=== PATIENT | female | born 1975 | race American Indian/Alaskan Native ===

== ENCOUNTER 2019-05-18 00:45 | Emergency (ER) | payer OTHER ==
[2019-05-18 01:13] VITALS: BP 136/90
[2019-05-18] MEDS ORDERED: AMOXICILLIN/K CLAV 875/125MG TAB PO ONE (03:31)
[2019-05-18] MEDS ORDERED: IBUPROFEN 800 MG TAB PO ONE (03:31)
--- NOTE | 2019-05-18 03:42 | Emergency Department Report ---
ED ENT HPI - General Chief complaint: Earache Stated complaint: EAR PAIN Time Seen by Provider: 05/18/19 02:48 Source: patient Mode of arrival: Ambulatory Limitations: No Limitations - History of Present Illness Initial comments: pt is a 43 y/o aaf who presents for right ear pain , this is a recurrent problem for past 2 months. symptoms were last tx'd with amoxicillin po , 1 month ago, but symptoms are worse now. There is no tinnitis, no loss of hearing. pt does endorse 5/1- earache, and noc fever. pt has not followed up with ent. there is no dizziness no light headedness no n/v no Mastoid tenderness. MD complaint: ear pain Onset/Timin -: week(s) Location: R ear Severity: moderate Severity scale (0 -10): 5 Quality: aching Consistency: constant Improves with: none Worsens with: movement Associated Symptoms: fever. denies: cough, gum swelling, toothache, pain with swallowing, sore throat, tinnitus, hearing loss, discharge from ear, rhinorrhea - Related Data Previous Rx's Medication Instructions Recorded Last Taken Type Amoxicillin/Potassium Clav 1 each PO BID 10 Days #20 tablet 05/18/19 Unknown Rx [Augmentin 875-125 Tablet] Ibuprofen [Motrin 800 MG tab] 800 mg PO Q8HR PRN #30 tablet 05/18/19 Unknown Rx Allergies Allergy/AdvReac Type Severity Reaction Status Date / Time No Known Allergies Allergy Verified 05/18/19 00:49 ED Dental HPI - General Chief complaint: Earache Stated complaint: EAR PAIN Time Seen by Provider: 05/18/19 02:48 Source: patient Mode of arrival: Ambulatory Limitations: No Limitations - Related Data Previous Rx's Medication Instructions Recorded Last Taken Type Amoxicillin/Potassium Clav 1 each PO BID 10 Days #20 tablet 05/18/19 Unknown Rx [Augmentin 875-125 Tablet] Ibuprofen [Motrin 800 MG tab] 800 mg PO Q8HR PRN #30 tablet 05/18/19 Unknown Rx Allergies Allergy/AdvReac Type Severity Reaction Status Date / Time No Known Allergies Allergy Verified 05/18/19 00:49 ED Review of Systems ROS: Stated complaint: EAR PAIN Other details as noted in HPI Constitutional: fever Eyes: denies: eye pain, eye discharge, vision change ENT: throat pain Respiratory: denies: cough, shortness of breath, wheezing Cardiovascular: denies: chest pain, palpitations Endocrine: no symptoms reported Gastrointestinal: denies: abdominal pain, nausea, vomiting, diarrhea Genitourinary: denies: urgency, dysuria, discharge Musculoskeletal: denies: back pain, joint swelling, arthralgia Skin: denies: rash, lesions Neurological: denies: headache, weakness, paresthesias Psychiatric: as per HPI Hematological/Lymphatic: denies: easy bleeding, easy bruising ED Past Medical Hx - Past Medical History Previous Medical History?: Yes Hx Asthma: Yes - Surgical History Past Surgical History?: Yes Additional Surgical History: hysterectomy, tibal ligation - Social History Smoking Status: Never Smoker Substance Use Type: None - Medications Home Medications: Home Medications Medication Instructions Recorded Confirmed Last Taken Type Amoxicillin/Potassium Clav 1 each PO BID 10 Days #20 tablet 05/18/19 Unknown Rx [Augmentin 875-125 Tablet] Ibuprofen [Motrin 800 MG tab] 800 mg PO Q8HR PRN #30 tablet 05/18/19 Unknown Rx ED Physical Exam - General Limitations: No Limitations General appearance: alert, in no apparent distress - Head Head exam: Present: atraumatic, normocephalic, normal inspection - Eye Eye exam: Present: normal appearance, PERRL, EOMI Pupils: Present: normal accommodation - ENT ENT exam: Present: normal orophraynx, mucous membranes moist, normal external ear exam - Expanded ENT Exam Expanded Ear exam: Present: normal external inspection TM/Canal exam: Erythema: Right TM, Loss of Landmarks: Right TM, Canal Tenderness: Right TM Mouth exam: Absent: trismus Throat exam: Positive: normal inspection. Negative: tonsillar erythema, tonsillomegaly, tonsillar exudate, R peritonsillar mass, L peritonsillar mass - Neck Neck exam: Present: normal inspection - Respiratory Respiratory exam: Present: normal lung sounds bilaterally. Absent: respiratory distress, wheezes, stridor, chest wall tenderness - Cardiovascular Cardiovascular Exam: Present: regular rate, normal rhythm, normal heart sounds. Absent: systolic murmur, diastolic murmur, rubs, gallop - GI/Abdominal GI/Abdominal exam: Present: soft, normal bowel sounds. Absent: distended, tenderness, bruit, hernia - Rectal Rectal exam: Present: deferred - Extremities Exam Extremities exam: Present: normal inspection, full ROM. Absent: tenderness - Back Exam Back exam: Present: normal inspection, full ROM. Absent: tenderness, rash noted - Neurological Exam Neurological exam: Present: alert, oriented X3, CN II-XII intact, normal gait - Psychiatric Psychiatric exam: Present: normal affect, normal mood - Skin Skin exam: Present: warm, dry, intact, normal color. Absent: rash ED Course Vital Signs 05/18/19 01:11 Temperature 98.3 F Pulse Rate 78 Respiratory 18 Rate Blood Pressure 136/90 O2 Sat by Pulse 98 Oximetry ED Medical Decision Making - Medical Decision Making This is recurring AOM, plan: augmentin, ibuprofen, follow up with ENT given referral to same, pt verbalized agreement and understanding of same. pt dc'd to home in stable condition at this time. Critical care attestation.: If time is entered above; I have spent that time in minutes in the direct care of this critically ill patient, excluding procedure time. ED Disposition Clinical Impression: AOM (acute otitis media) Qualifiers: Otitis media type: serous Laterality: right Recurrence: recurrent Qualified Code(s): H65.04 - Acute serous otitis media, recurrent, right ear Disposition: DC-01 TO HOME OR SELFCARE Is pt being admited?: No Does the pt Need Aspirin: No Condition: Stable Instructions: Otitis Media (ED) Prescriptions: Amoxicillin/Potassium Clav [Augmentin 875-125 Tablet] 1 each PO BID 10 Days #20 tablet Ibuprofen [Motrin 800 MG tab] 800 mg PO Q8HR PRN #30 tablet PRN Reason: pain Referrals: ABELARDO RAMIREZ MD [Primary Care Provider] - 3-5 Days TASH MCCRAY MD [Staff Physician] - 3-5 Days Forms: Work/School Release Form(ED) Time of Disposition: 03:49
[2019-05-18] MEDS ORDERED: FLUCONAZOLE 200 MG TAB PO ONE (03:53)
[2019-05-18] MEDS ORDERED: FLUCONAZOLE 200 MG TAB PO SCH (10:00)
== END 2019-05-18 04:10 | disposition home or self-care (01) ==
LOC: ED 00:45
DX: H65.04 Acute serous otitis media, recurrent, right ear (principal); J45.909 Unspecified asthma, uncomplicated; Z79.1 Long term (current) use of non-steroidal anti-inflammatories (NSAID); Z79.899 Other long term (current) drug therapy; Z90.710 Acquired absence of both cervix and uterus; Z98.51 Tubal ligation status
CPT/HCPCS: 99282

== ENCOUNTER 2019-06-16 21:46 | Emergency (ER) | payer OTHER ==
[2019-06-16 21:55] VITALS: BP 149/95
--- NOTE | 2019-06-16 22:09 | Emergency Department Report ---
ED ENT HPI - General Chief complaint: Earache Stated complaint: RT EARACHE Time Seen by Provider: 06/16/19 22:02 Source: patient Mode of arrival: Ambulatory Limitations: No Limitations - History of Present Illness Initial comments: This is a 43-year-old female nontoxic well in appearance with no signs of distress presents to the ED with complaint of right earache. Patient denies any hearing loss. Denies any mastoid tenderness. Denies any fever, chills, headache, nausea, vomiting, chest pain or SOB. Denies any other complaints. Allergies includes PCN. MD complaint: ear pain -: days(s) Location: R ear Severity: mild Severity scale (0 -10): 8 Quality: aching Consistency: constant Improves with: none Worsens with: none Associated Symptoms: denies: fever, cough, pain with swallowing, sore throat, tinnitus, hearing loss, discharge from ear, rhinorrhea - Related Data Previous Rx's Medication Instructions Recorded Last Taken Type Amoxicillin/Potassium Clav 1 each PO BID 10 Days #20 tablet 05/18/19 Unknown Rx [Augmentin 875-125 Tablet] Ibuprofen [Motrin 800 MG tab] 800 mg PO Q8HR PRN #30 tablet 05/18/19 Unknown Rx Azithromycin [Zithromax Z-MARCOS] 250 mg PO DAILY #6 tablet 06/16/19 Unknown Rx Allergies Allergy/AdvReac Type Severity Reaction Status Date / Time No Known Allergies Allergy Verified 05/18/19 00:49 ED Dental HPI - General Chief complaint: Earache Stated complaint: RT EARACHE Time Seen by Provider: 06/16/19 22:02 Source: patient Mode of arrival: Ambulatory Limitations: No Limitations - Related Data Previous Rx's Medication Instructions Recorded Last Taken Type Amoxicillin/Potassium Clav 1 each PO BID 10 Days #20 tablet 05/18/19 Unknown Rx [Augmentin 875-125 Tablet] Ibuprofen [Motrin 800 MG tab] 800 mg PO Q8HR PRN #30 tablet 05/18/19 Unknown Rx Azithromycin [Zithromax Z-MARCOS] 250 mg PO DAILY #6 tablet 06/16/19 Unknown Rx Allergies Allergy/AdvReac Type Severity Reaction Status Date / Time No Known Allergies Allergy Verified 05/18/19 00:49 ED Review of Systems ROS: Stated complaint: RT EARACHE Other details as noted in HPI Constitutional: denies: chills, fever Eyes: denies: eye pain, eye discharge, vision change ENT: ear pain. denies: throat pain Respiratory: denies: cough, shortness of breath, wheezing Cardiovascular: denies: chest pain, palpitations Endocrine: no symptoms reported Gastrointestinal: denies: abdominal pain, nausea, diarrhea Genitourinary: denies: urgency, dysuria, discharge Musculoskeletal: denies: back pain, joint swelling, arthralgia Skin: denies: rash, lesions Neurological: denies: headache, weakness, paresthesias Psychiatric: denies: anxiety, depression Hematological/Lymphatic: denies: easy bleeding, easy bruising ED Past Medical Hx - Past Medical History Hx Asthma: Yes - Surgical History Additional Surgical History: hysterectomy, tibal ligation - Social History Smoking Status: Never Smoker Substance Use Type: None - Medications Home Medications: Home Medications Medication Instructions Recorded Confirmed Last Taken Type Amoxicillin/Potassium Clav 1 each PO BID 10 Days #20 tablet 05/18/19 Unknown Rx [Augmentin 875-125 Tablet] Ibuprofen [Motrin 800 MG tab] 800 mg PO Q8HR PRN #30 tablet 05/18/19 Unknown Rx Azithromycin [Zithromax Z-MARCOS] 250 mg PO DAILY #6 tablet 06/16/19 Unknown Rx ED Physical Exam - General Limitations: No Limitations General appearance: alert, in no apparent distress - Head Head exam: Present: atraumatic, normocephalic - Expanded ENT Exam Expanded Ear exam: Present: normal external inspection TM/Canal exam: Erythema: Right TM, Bulging: Right TM Mouth exam: Present: normal external inspection Teeth exam: Present: normal inspection Throat exam: Positive: normal inspection, other (uvula midline). Negative: tonsillar erythema, tonsillomegaly, tonsillar exudate, R peritonsillar mass, L peritonsillar mass - Neck Neck exam: Present: normal inspection, full ROM. Absent: tenderness, meningismus, lymphadenopathy - Extremities Exam Extremities exam: Present: full ROM - Back Exam Back exam: Present: full ROM - Neurological Exam Neurological exam: Present: alert, oriented X3 - Psychiatric Psychiatric exam: Present: normal affect, normal mood - Skin Skin exam: Present: warm, dry, intact, normal color. Absent: rash - Other Other exam information: No mastoid tenderness. No tragus pain. No driange. ED Course Vital Signs 06/16/19 21:53 Temperature 98.0 F Pulse Rate 92 H Respiratory 20 Rate Blood Pressure 149/95 O2 Sat by Pulse 98 Oximetry - Reevaluation(s) Reevaluation #1: 06/16/19 22:08 PAtient is speaking in full sentences with no signs of distress noted. ED Medical Decision Making - Medical Decision Making Patient was instructed to Follow-up with a ENT doctor in 3-5 days or if symptoms worsen and continue return to emergency room as soon as possible. At time of discharge, the patient does not seem toxic or ill in appearance. No acute signs of distress noted. Patient agrees to discharge treatment plan of care. No further questions noted by the patient. Critical care attestation.: If time is entered above; I have spent that time in minutes in the direct care of this critically ill patient, excluding procedure time. ED Disposition Clinical Impression: Otitis media Qualifiers: Otitis media type: unspecified Chronicity: acute Qualified Code(s): H66.90 - Otitis media, unspecified, unspecified ear Disposition: DC- TO HOME OR SELFCARE Is pt being admited?: No Does the pt Need Aspirin: No Condition: Stable Instructions: Otitis Media (ED) Additional Instructions: Follow-up with a ENT doctor in 3-5 days or if symptoms worsen and continue return to emergency room as soon as possible. Prescriptions: Azithromycin [Zithromax Z-MARCOS] 250 mg PO DAILY #6 tablet Referrals: PRIMARY CAREMD [Referring] - 3-5 Days MAMI RIVERA MD [Staff Physician] - 3-5 Days [facility] [Outside] - 3-5 Days Forms: Work/School Release Form(ED)
== END 2019-06-16 22:15 | disposition home or self-care (01) ==
LOC: ED 21:46
DX: H66.91 Otitis media, unspecified, right ear (principal); J45.909 Unspecified asthma, uncomplicated; Z90.710 Acquired absence of both cervix and uterus; Z98.51 Tubal ligation status; Z79.899 Other long term (current) drug therapy; Z88.1 Allergy status to other antibiotic agents

== ENCOUNTER 2020-04-25 18:47 | Emergency (ER) | payer OTHER ==
--- NOTE | 2020-04-25 19:49 | Event Note ---
ED Screening Note Date of service: 04/25/20 Time: 19:48 ED Screening Note: Pt complains of throat pain and difficulty swallowing x 2 days states has a goiter and concerned about her thyroid +trismus on exam This initial assessment/diagnostic orders/clinical plan/treatment(s) is/are subject to change based on patients health status, clinical progression and re- assessment by fellow clinical providers in the ED. Further treatment and workup at subsequent clinical providers discretion. Patient/guardian urged not to elope from the ED as their condition may be serious if not clinically assessed and managed. Initial orders include: CT labs
[2020-04-25] MEDS ORDERED: ACETAMINOPHEN 325 MG/10.15 ML ORAL LIQD UNIT DOSE PO ONE (20:23)
[2020-04-25] MEDS ORDERED: KETOROLAC 30 MG/1 ML INJ IV ONE (20:23)
[2020-04-25] MEDS ORDERED: SODIUM CHLORIDE 0.9% 500 ML 500 ML IV ONE (20:23)
--- NOTE | 2020-04-25 20:34 | Emergency Department Report ---
ED General Adult HPI - General Chief complaint: Dyspnea/Respdistress Stated complaint: SWOLLEN NECK/EAR PAIN PUI?: No Time Seen by Provider: 04/25/20 20:13 Source: patient, RN notes reviewed Mode of arrival: Ambulatory Limitations: No Limitations - History of Present Illness Initial comments: The patient was evaluated in the emergency department for symptoms described in the history of present illness. He/she was evaluated in the context of the global COVID-19 pandemic, which necessitated consideration that the patient migh t be at risk for infection with the virus that causes COVID-19. Institutional protocols and algorithms that pertain to the evaluation of patients at risk for COVID-19 are in a state of rapid change based on information released by regulatory bodies including the CDC and federal and state organizations. These policies and algorithms were followed during the patient's care in the emergency department. Please note that these policies, procedures and recommendations changed on a rapid basis. Primary care doctor: Dr. Chapa Patient is a 44-year-old female who is not known to myself previously. She states she is not and has not delivered within the past 6 weeks. Her past medical history includes Mnire's disease, insomnia, intermittent migraine headaches and goiter. She presents to the ER with a complaint of nontraumatic left-sided neck pain, subjective left-sided neck swelling, left paracervical neck pain, and subjective sensation of swelling and discomfort inside her neck/throat. She denies midline headache, sudden or thunderclap headache, chest pain, abdominal pain, shortness of breath, nausea, vomiting. She denies new onset tinnitus, new onset vertigo, and new onset loss of auditory acuity. She denies dental pain to myself. Symptoms present for the past 2 to 3 days, they are constant, worsened with palpation, range of motion, decreased with rest and position. -: Gradual, days(s) Location: neck Severity scale (0 -10): 8 Quality: aching Consistency: constant Improves with: other Worsens with: other - Related Data Previous Rx's Medication Instructions Recorded Last Taken Type Acetaminophen [Non-Aspirin Extra 500 mg PO Q6HR PRN #30 tablet 04/25/20 Unknown Rx Strength] Ibuprofen [Motrin] 600 mg PO Q8H PRN #30 tablet 04/25/20 Unknown Rx Allergies Allergy/AdvReac Type Severity Reaction Status Date / Time amoxicillin Allergy Hives Verified 06/16/19 22:12 ED Review of Systems ROS: Stated complaint: SWOLLEN NECK/EAR PAIN Other details as noted in HPI Constitutional: denies: fever, malaise Eyes: denies: eye discharge, vision change ENT: ear pain, throat pain. denies: dental pain, hearing loss, epistaxis Respiratory: denies: cough Cardiovascular: denies: chest pain Gastrointestinal: denies: abdominal pain, nausea, vomiting Genitourinary: denies: dysuria Musculoskeletal: myalgia Neurological: denies: headache Hematological/Lymphatic: denies: easy bleeding ED Past Medical Hx - Past Medical History Previous Medical History?: Yes Hx Headaches / Migraines: Yes Hx Asthma: Yes Additional medical history: Thyroid disease, Insomnia - Surgical History Past Surgical History?: Yes Additional Surgical History: hysterectomy, tibal ligation - Social History Smoking Status: Never Smoker Substance Use Type: None - Medications Home Medications: Home Medications Medication Instructions Recorded Confirmed Last Taken Type Acetaminophen [Non-Aspirin Extra 500 mg PO Q6HR PRN #30 tablet 04/25/20 Unknown Rx Strength] Ibuprofen [Motrin] 600 mg PO Q8H PRN #30 tablet 04/25/20 Unknown Rx ED Physical Exam - General Limitations: No Limitations General appearance: alert, obese - Head Head exam: Present: atraumatic, normocephalic - Eye Eye exam: Present: normal appearance, EOMI. Absent: nystagmus - ENT ENT exam: Present: normal exam, normal orophraynx, mucous membranes moist, TM's normal bilaterally, normal external ear exam - Neck Neck exam: Present: normal inspection, tenderness (There is left paracervical tenderness, and trapezius tenderness), full ROM, lymphadenopathy (There is left anterior cervical adenopathy), thyromegaly, other (There is no stridor, trismus or malocclusion. There is no elevation of the base of the tongue. The patient is speaking in full sentences peer). Absent: meningismus - Respiratory Respiratory exam: Present: normal lung sounds bilaterally. Absent: respiratory distress, wheezes, rales, rhonchi, stridor, chest wall tenderness, accessory muscle use, decreased breath sounds, prolonged expiratory - Cardiovascular Cardiovascular Exam: Present: regular rate, normal rhythm, normal heart sounds. Absent: bradycardia, tachycardia, irregular rhythm, systolic murmur, diastolic murmur, rubs, gallop - GI/Abdominal GI/Abdominal exam: Present: soft. Absent: distended, tenderness, guarding, rebound, rigid, pulsatile mass - Extremities Exam Extremities exam: Present: normal inspection, full ROM, other (2+ pulses noted in the bilateral upper and lower extremities. There is no palpable cord. negative Homans sign. Muscular compartments are soft. The pelvis is stable.). Absent: pedal edema, calf tenderness - Back Exam Back exam: Present: normal inspection, full ROM. Absent: tenderness, CVA tenderness (R), CVA tenderness (L), paraspinal tenderness, vertebral tenderness - Neurological Exam Neurological exam: Present: alert, oriented X3, other (No facial droop. Tongue midline. Extraocular movements intact bilaterally. Facial sensation intact to light touch in V1, V2, V3 distribution bilaterally. 5 and a 5 strength in 4 extremities. Sensation intact to light touch in 4 extremities.). Absent: motor sensory deficit - Psychiatric Psychiatric exam: Present: normal affect, normal mood - Skin Skin exam: Present: warm, dry, intact, normal color. Absent: rash ED Course Vital Signs 04/25/20 04/25/20 19:30 20:07 Temperature 99.0 F 98.7 F Pulse Rate 99 H 90 Respiratory 20 16 Rate Blood Pressure 133/93 Blood Pressure 156/89 [Right] O2 Sat by Pulse 97 Oximetry - Reevaluation(s) Reevaluation #1: 04/25/20 21:35 Differential diagnosis, including but not limited to: Deep space neck infection/inflammation, cervical adenopathy, goiter, muscular neck pain Assessment and plan: 44-year-old female, who is afebrile with reassuring vital signs with exception of mildly elevated blood pressure, please reference the [employer] clinical policy on asymptomatic and elevated blood pressure, presenting with left nontraumatic neck pain, left anterior cervical adenopathy. There is no stridor or dysphonia, patient is able to fairly easily open up the mouth, there is no trismus. Her external otologic examination is unremarkable, and tympanic membranes are clear. She is able to tolerate oral medications in this department. We will treat her symptoms, laboratory studies so far unremarkable, obtain CT scan of the neck, and reassess. Reevaluation #2: 04/25/20 22:57 Patient is reassessed multiple times. She is protecting her airway, and is able to tolerate oral feeds. Blood pressure currently [address] scan neck shows lymphadenopathy, consistent with her physical exam, and enlarged tonsils. On direct inspection, I do not see significant tonsillar irritation or exudate. Patient will be given Decadron, she can be discharged with supportive medications, and instructed to follow-up with outpatient primary care and/or otolaryngology. Patient will also be given copy of laboratory studies and CT scan report so she can bring it with her to outpatient follow-up ED Medical Decision Making - Lab Data Result diagrams: 04/25/20 19:52 04/25/20 19:52 Vital Signs 04/25/20 04/25/20 19:30 20:07 Temperature 99.0 F 98.7 F Pulse Rate 99 H 90 Respiratory 20 16 Rate Blood Pressure 133/93 Blood Pressure 156/89 [Right] O2 Sat by Pulse 97 Oximetry Lab Results 04/25/20 04/25/20 04/25/20 Range/Units 19:52 19:52 20:36 WBC 5.4 (4.5-11.0) K/mm3 RBC 4.59 (3.65-5.03) M/mm3 Hgb 13.2 (10.1-14.3) gm/dl Hct 39.6 (30.3-42.9) % MCV 86 (79-97) fl MCH 29 (28-32) pg MCHC 33 (30-34) % RDW 13.7 (13.2-15.2) % Plt Count 249 (140-440) K/mm3 Lymph % (Auto) 48.0 H (13.4-35.0) % [place] % (Auto) 11.0 H (0.0-7.3) % Eos % (Auto) 1.3 (0.0-4.3) % Baso % (Auto) 0.9 (0.0-1.8) % Lymph # (Auto) 2.6 (1.2-5.4) K/mm3 [place] # (Auto) 0.6 (0.0-0.8) K/mm3 Eos # (Auto) 0.1 (0.0-0.4) K/mm3 Baso # (Auto) 0.0 (0.0-0.1) K/mm3 Seg Neutrophils % 38.8 L (40.0-70.0) % Seg Neutrophils # 2.1 (1.8-7.7) K/mm3 PT 12.7 (12.2-14.9) Sec. INR 0.94 (0.87-1.13) Sodium 140 (137-145) mmol/L Potassium 3.9 (3.6-5.0) mmol/L Chloride 99.6 (98-107) mmol/L Carbon Dioxide 25 (22-30) mmol/L Anion Gap 19 mmol/L BUN 9 (7-17) mg/dL Creatinine 0.6 (0.6-1.2) mg/dL Estimated GFR > 60 ml/min BUN/Creatinine Ratio 15 % Glucose 86 (65-100) mg/dL Calcium 9.5 (8.4-10.2) mg/dL Magnesium (1.7-2.3) mg/dL Total Creatine Kinase (30-135) units/L TSH (0.270-4.200) mlU/mL 04/25/20 04/25/20 Range/Units 20:36 20:36 WBC (4.5-11.0) K/mm3 RBC (3.65-5.03) M/mm3 Hgb (10.1-14.3) gm/dl Hct (30.3-42.9) % MCV (79-97) fl MCH (28-32) pg MCHC (30-34) % RDW (13.2-15.2) % Plt Count (140-440) K/mm3 Lymph % (Auto) (13.4-35.0) % [place] % (Auto) (0.0-7.3) % Eos % (Auto) (0.0-4.3) % Baso % (Auto) (0.0-1.8) % Lymph # (Auto) (1.2-5.4) K/mm3 [place] # (Auto) (0.0-0.8) K/mm3 Eos # (Auto) (0.0-0.4) K/mm3 Baso # (Auto) (0.0-0.1) K/mm3 Seg Neutrophils % (40.0-70.0) % Seg Neutrophils # (1.8-7.7) K/mm3 PT (12.2-14.9) Sec. INR (0.87-1.13) Sodium (137-145) mmol/L Potassium (3.6-5.0) mmol/L Chloride (98-107) mmol/L Carbon Dioxide (22-30) mmol/L Anion Gap mmol/L BUN (7-17) mg/dL Creatinine (0.6-1.2) mg/dL Estimated GFR ml/min BUN/Creatinine Ratio % Glucose (65-100) mg/dL Calcium (8.4-10.2) mg/dL Magnesium 2.30 (1.7-2.3) mg/dL Total Creatine Kinase 44 (30-135) units/L TSH 1.450 (0.270-4.200) mlU/mL - Radiology Data Radiology results: pending, report reviewed, image reviewed Print Report Referring Physician: FLAQUITO HERNANDEZ Patient Name: JOHN CROWE Date of : 1975 Sex: Female Report Date: 2020-04-25 Report Status: [place] [address] Cat Scan Report Signed Patient: JOHN CROWE MR#: [id number] : 1975 Acct:[id number] Age/Sex: 44 / F ADM Date: 04/25/20 Loc: ED Attending Dr: Ordering Physician: FLAQUITO HERNANDEZ Date of Service: 04/25/20 Procedure(s): CT neck w con Accession Number(s): [id number] cc: FLAQUITO HERNANDEZ CT NECK WITH CONTRAST HISTORY: Throat pain COMPARISON: None. TECHNIQUE: Routine CT of the neck is performed following intravenous contrast. All CT scans at this location are performed using CT dose reduction for ALARA by means of automated exposure control CONTRAST: 100 mL Omnipaque 300 FINDINGS: Both faucial tonsils are enlar ged. No CT findings to suggest inflammation or tonsillar abscess. Enlarged tonsils narrowing the airway. Few reactive lymph nodes are seen. Skull Base: No significant abnormality. Parotid, Carotid, Retropharyngeal, Prevertebral, Pharyngeal Mucosal, and Hot Baller Spaces: No abnormal mass, enhancing lesion or other significant abnormality. Airway: Narrowed in the oral cavity from enlarged faucial tonsils Lymphatics: Active lymph nodes in the at level 1 and level 2 Vasculature: No significant abnormality. Osseous Structures: No significant abnormality Additional findings: None. IMPRESSION: Both faucial tonsils are enlarged; however, no tonsillitis are tonsillar abscess Signer Name: Brandy Kumar MD Signed: 04/25/2020 10:49 PM Workstation Name: [id number] Transcribed By: MELODY Dictated By: Brandy Abrams MD Electronically Authenticated By: Brandy Abrams MD Signed Date/Time: 04/25/202248 DD/ 46 TD/TT: Critical care attestation.: If time is entered above; I have spent that time in minutes in the direct care of this critically ill patient, excluding procedure time. ED Disposition Clinical Impression: Lymphadenopathy, Neck pain, Enlarged tonsils Disposition: - TO HOME OR SELFCARE Is pt being admited?: No Does the pt Need Aspirin: No Condition: Stable Additional Instructions: Advance diet as tolerated. Drink plenty of fluids, do not take metformin medication for the next 2 days, if patient takes this medication. Take the prescribed pain medications as needed and directed, and follow-up with an ENT/otolaryngology doctor within the next 5 to 7 days. Please return to the emergency room right away with new pain, worsened pain, migration of pain, rectal vomiting, change in mental status, confusion, inability to speak, inability to breathe, inability to open up the jaw, or any new, worsened or different symptoms not present on the initial emergency room evaluation. Referrals: BAUDILIO CHAPA MD [Primary Care Provider] - 3-5 Days ADRIANA VANEGAS MD [Staff Physician] - 3-5 Days TASH MCCRAY MD [Staff Physician] - 3-5 Days
[2020-04-25 20:39] LABS: Basophils % (Auto) 0.9 % (0.0-1.8); Eosinophils # (Auto) 0.1 K/mm3 (0.0-0.4); Eosinophils % (Auto) 1.3 % (0.0-4.3); Hematocrit 39.6 % (30.3-42.9); Hemoglobin 13.2 gm/dl (10.1-14.3); Lymphocytes # (Auto) 2.6 K/mm3 (1.2-5.4); Mean Corpuscular HGB Conc 33 % (30-34); Mean Corpuscular Volume 86 fl (79-97); Monocytes # (Auto) 0.6 K/mm3 (0.0-0.8); Platelet Count 249 K/mm3 (140-440); Red Blood Count 4.59 M/mm3 (3.65-5.03); Red Cell Distribution Width 13.7 % (13.2-15.2)
[2020-04-25 20:52] LABS: Blood Urea Nitrogen 9 mg/dL (7-17); Calcium 9.5 mg/dL (8.4-10.2); Hemolysis Index 6
[2020-04-25 20:53] LABS: BUN/Creatinine Ratio 15
[2020-04-25 21:04] LABS: INR 0.94 (0.87-1.13)
--- NOTE | 2020-04-25 22:54 | Cat Scan Report ---
CT NECK WITH CONTRAST HISTORY: Throat pain COMPARISON: None. TECHNIQUE: Routine CT of the neck is performed following intravenous contrast. All CT scans at this [facility] are performed using CT dose reduction for ALARA by means of automated exposure control CONTRAST: 100 mL Omnipaque 300 FINDINGS: Both faucial tonsils are enlarged. No CT findings to suggest inflammation or tonsillar abscess. Enlar ged tonsils narrowing the airway. Few reactive lymph nodes are seen. Skull Base: No significant abnormality. Parotid, Carotid, Retropharyngeal, Prevertebral, Pharyngeal Mucosal, and Labelling Machine Operator Spaces: No abnorm al mass, enhancing lesion or other significant abnormality. Airway: Narrowed in the oral cavity from enlarged faucial tonsils Lymphatics: Active lymph nodes in the at level 1 and level 2 Vasculature: No significant abnormality. Osseous Structures: No significant abnormality Additional findings: None. IMPRESSION: Both faucial tonsils are enlarged; however, no tonsillitis are tonsillar abscess Signer Name: Brandy Kumar MD Signed: 04/25/2020 10:49 PM Workstation Name: [id number]
[2020-04-25] MEDS ORDERED: dexAMETHasone 20 MG/5 ML VIAL IV ONE (22:57)
[2020-04-25 23:53] VITALS: BP 133/91
== END 2020-04-25 23:58 | disposition home or self-care (01) ==
LOC: ED 18:47
DX: J35.1 Hypertrophy of tonsils (principal); M54.2 Cervicalgia; R59.1 Generalized enlarged lymph nodes; J45.909 Unspecified asthma, uncomplicated; G43.909 Migraine, unspecified, not intractable, without status migrainosus; Z79.899 Other long term (current) drug therapy; Z88.0 Allergy status to penicillin; Z90.710 Acquired absence of both cervix and uterus; Z98.51 Tubal ligation status
CPT/HCPCS: 36415; 70491; 80048; 82550; 83735; 84443; 84702; 85025; 85610; 96361; 96374; 96375; 99284; J1100; J1885; J7040; Q9967